=== PATIENT | female | born 1995 | race African-American/Black ===

== ENCOUNTER 2023-04-01 12:10 | Emergency (ER) | payer OTHER, SELFPAY ==
[2023-04-01] VITALS (8 sets, daily range): BP systolic 120–139; BP diastolic 75–89; PULSE 99–109; RESP 16–27; TEMP 36.4–37; O2SAT 96–100
--- NOTE | ~2023-04-01 | CT_ITS ---
EXAMINATION: CT soft tissue neck w con DATE: 04/01/2023 14:05 INDICATION: Sore throat. TECHNIQUE: Computed tomography (CT) of the neck was performed with 75 mL Omnipaque-350 intravenous co ntrast. Automated exposure control and iterative reconstruction technique were employed. The dose-mary gth product was 563.21 mGy-cm. COMPARISON: None FINDINGS: The adenoids and palatine tonsils are enlarged. There are enlarged bilateral high internal jugular nodes and retropharyngeal nodes. There is a mucous retention cyst in right maxillary sinus. T here is mild mucosal thickening in the paranasal sinuses. The mastoid air cells are normal. There is cervical kyphosis and mild spondylosis. IMPRESSION: 1. Enlarged adenoids and palatine tonsils. No abscess. 2. Mild bilateral cervical lymphadenopathy, likely reactive. Reviewed, dictated and finalized at location [facility]. [facility]
--- NOTE | 2023-04-01 12:45 | ED.URI ---
HPI - URI/Sore Throat General Chief Complaint: Upper Respiratory Infection Stated Complaint: sore throat Time Seen by Provider: 04/01/23 12:45 Source: patient Mode of arrival: ambulatory Limitations: no limitations History of Present Illness HPI Narrative: This is a 28 year old female that presents to the ER for sore throat. Ongoing over the last 2 days. Reports worsening today and unable to tolerate PO which prompted her to be seen. Denies fevers. Related Data Allergies Allergy/AdvReac Type Severity Reaction Status Date / Time No Known Allergies Allergy Verified 04/01/23 14:08 Review of Systems Review of Systems: CONSTITUTIONAL: Denies fever ENT: Reports rhinorrhea, congestion, sore throat RESPIRATORY: Denies cough or dyspnea. All systems reviewed & are unremarkable except as noted in HPI and below PMFSH Past Medical History Medical History (Updated 04/01/23 @ 15:28 by Marcie Briones PA-C) No active medical problems Social History Social History (Updated 04/01/23 @ 12:46 by Marcie Briones PA-C) Substance use: never Exam Narrative: GENERAL: Well-appearing, well-nourished, and in no acute distress. HEAD: Normocephalic, atraumatic. EYES: EOMI. ENT: Nares clear, no rhinorrhea or epistaxis. Mucous membranes moist. Oropharynx with tonsillar hypertrophy and exudate, no other lesions. Uvula midline, no trismus NECK: Supple. Right tender anterior cervical adenopathy CHEST: Clear to auscultation. No respiratory distress. No wheezes rales or rhonchi HEART: Regular rate and rhythm. No murmur heard. Normal peripheral pulses. EXTREMITIES: Normal range of motion. No edema. SKIN: Warm, dry, no rash. NEURO: No focal deficits. Alert and oriented x3. PSYCH: Normal mood and affect Course Course Emergency Course: Patient updated on her workup. Reports feeling much better. Ready for discharge home Vital Signs Vital signs: Vital Signs Temperature 97.6 F 04/01/23 12:24 Pulse Rate 106 H 04/01/23 12:24 Respiratory Rate 18 04/01/23 12:24 Blood Pressure 139/86 04/01/23 12:24 Pulse Oximetry 98 04/01/23 12:24 Oxygen Delivery Room Air 04/01/23 12:24 Temperature 98.6 F 04/01/23 14:33 Pulse Rate 102 H 04/01/23 14:33 Respiratory Rate 18 04/01/23 14:33 Blood Pressure 123/86 04/01/23 14:33 Pulse Oximetry 100 04/01/23 14:33 Oxygen Delivery Room Air 04/01/23 12:24 MDM - URI/Sore Throat MDM Narrative Medical decision making narrative: MSE performed by NIKIA in triage Patient presents to the ER for sore throat ongoing since yesterday. She is afebrile and nontoxic appearing. Uvula is midline, no trismus. Patient reported pain worse on the right side and she was quite swollen, further workup obtained to rule out REPRODUCER. CBC with leukocytosis to 28.9. Metabolic panel without concerning findings. Strep screen positive. CT soft tissue neck without evidence of abscess. Patient updated on her workup. Reports feeling much better. Ready for discharge home. She is to follow up with PCP. She was given warnings to return to the ER Differential Diagnosis Differential diagnosis: Likely sinusitis, viral infection, pharyngitis and other (strep, REPRODUCER) Lab Data Attestation: I reviewed the patient's lab results. 04/01/23 13:22 04/01/23 13:56 Labs: Lab Results 04/01/23 04/01/23 Range/Units 13:22 13:56 WBC 28.9 H (4.5-10.0) K/mm3 RBC 5.05 (4.2-5.4) M/mm3 Hgb 12.9 (12.0-15.0) g/dL Hct 41.7 (37.0-47.0) % MCV 82.6 (80-100) fl MCH 25.5 L (26-34) pg MCHC 30.9 L (32-36) g/dl RDW 15.7 H (11.5-14.5) % Plt Count 364 (150-375) k/mm3 MPV 9.4 (7.4-10.4) fl Immature Gran % (Auto) 0.8 H (0-0.5) % Neut % (Auto) 84.6 H (45.5-73.1) % Lymph % (Auto) 8.6 L (18.3-44.2) % Placer % (Auto) 5.8 (2.6-8.5) % Eos % (Auto) 0.0 (0-4.4) % Baso % (Auto) 0.2 (0.2-1.2) % Lymph # (Auto) 2.50 (0.9-3.2) K/mm3 Placer # (Auto)
[2023-04-01 13:30] LABS: Basophils Absolute Auto 0.1 K/mm3 (0.0-0.1); Basophils Percent Auto 0.2 % (0.2-1.2); Hematocrit 41.7 % (37.0-47.0); Hemoglobin 12.9 g/dL (12.0-15.0); Immature Granulocyte Absolute 0.23 K/mm3 (0.00-0.031); Immature Granulocyte Percent A 0.8 % (0-0.5); Lymphocytes Percent Auto 8.6 % (18.3-44.2); Mean Corpuscular HGB Conc 30.9 g/dl (32-36); Mean Corpuscular Hemoglobin 25.5 pg (26-34); Mean Corpuscular Volume 82.6 fl (80-100); Mean Platelet Volume 9.4 fl (7.4-10.4); Monocytes Absolute Auto 1.7 K/mm3 (0.1-0.6); Monocytes Percent Auto 5.8 % (2.6-8.5); Neutrophils Absolute Auto 24.4 K/mm3 (1.3-6.7); Neutrophils Percent Auto 84.6 % (45.5-73.1); Platelet Count Result 364 k/mm3 (150-375); Red Blood Count 5.05 M/mm3 (4.2-5.4); Red Cell Distribution Width 15.7 % (11.5-14.5); White Blood Count 28.9 K/mm3 (4.5-10.0)
[2023-04-01 13:41] LABS: Anion Gap 12 mmol/L (8-16); Blood Urea Nitrogen 6 mg/dL (7-17); Calcium 9.5 mg/dL (8.4-10.2); Carbon Dioxide 26 mmol/L (22-30); Chloride 100 mmol/L (98-107); Estimated CRCL calculation 138 ml/min; Estimated Glomerular Filt Rate > 60; Glucose 92 mg/dL (65-110); Potassium 3.9 mmol/L (3.4-5.0); Sodium 138 mmol/L (137-145)
[2023-04-01 13:51] LABS: Strep Group A RT-PCR DETECTED (Negative)
[2023-04-01 13:58] LABS: Estimated CRCL calculation 120 ml/min; Estimated Glomerular Filt Rate > 60
[2023-04-01] MEDS: SODIUM CHLORIDE 0.9% IV 1,000 ML 999 ML IV CONT (14:10)
[2023-04-01] MEDS: AMPICILLIN SULB 3 GM/NS 100 ML 3 GM/100 ML VIAL IVPB (14:11)
[2023-04-01] MEDS: KETOROLAC 15 MG/ML VIAL (*BKC) IV PUSH (15:03)
--- NOTE | 2023-04-01 15:04 | PC.NURSE ---
Pt refuses test. Pt reports she is not therefore she does not need a test
== END 2023-04-01 15:56 | disposition home or self-care (01) ==
PROVIDERS: Emergency Provider Physician Assistant
DX: J02.0 Streptococcal pharyngitis (principal)
CPT/HCPCS: 36415; 70491; 80048; 85025; 87651; 96361; 96365; 96375; 99284; J0295; J1100; J1885; J7030; Q9967